=== PATIENT | female | born 1945 | race Caucasian/White ===

== ENCOUNTER → 2017-01-13 | Outpatient (CLI) | payer MEDICARE ==
[~2017-01-13] MED LIST: ADVIN25050 INH; ALBUAER INH; ASPEC325 PO; CETICHW4 PO; CLOP1TAB15 PO; CLTP PO; CRG25 PO; CRS20 PO; DVN80 PO; ELM100 PO; EZET10TA63 PO; HYDC25 PO; MULT-506 PO; OXYC-57 PO; TIOTCAP INH; [UNRECOGNIZED DRUG - OTHER] PO
== END | disposition home or self-care (01) ==
LOC: C.LABSPEC 16:55
PROVIDERS: ATTEND Urology
DX: N39.0 Urinary tract infection, site not specified (principal)

== ENCOUNTER → 2017-08-16 | Outpatient (CLI) | payer MEDICARE | END | disposition home or self-care (01) | LOC: C.LABSPEC 16:54 | PROVIDERS: ATTEND Nurse Practitioner Adult Health | DX: N39.0 Urinary tract infection, site not specified (principal) ==

== ENCOUNTER → 2018-01-05 | Outpatient (CLI) | payer MEDICARE | END | disposition home or self-care (01) | LOC: C.LABSPEC 12:15 | PROVIDERS: ATTEND Urology | DX: N39.0 Urinary tract infection, site not specified (principal); R32 Unspecified urinary incontinence ==